=== PATIENT | female | born 1955 | race Caucasian/White ===

== ENCOUNTER 2016-10-18 07:17 | Day surgery (SDC) | payer BC ==
[~2016-10-18] VITALS: Ht 149.9 cm; Wt 66.0 kg
[~2016-10-18 07:17] MED LIST: COZAAR100 MG PO; GLUCOPHAGE1000 MG PO; INDERAL20 MG PO; LUNESTA3 MG PO; MAALOX MAXIMUM355 ML PO; NEURONTIN100 MG PO; OMEPRAZOLE40 M1 PO; ZANTAC75 M1 PO; ZOLOFT100 MG PO
[2016-10-18] MEDS ORDERED: TYLENOL EXTRA500 MG PO (07:59)
[2016-10-18 08:01] VITALS: BP 141/73
[2016-10-18 08:34] LABS: POINT-OF-CARE METER ID UU13113694
[2016-10-18 12:45] VITALS: BP 164/76
[2016-10-18 13:15] VITALS: BP 160/74
== END 2016-10-18 13:55 | disposition home or self-care (01) ==
LOC: SDC 07:17
PROVIDERS: Otolaryngology
DX: J39.2 Other diseases of pharynx (principal); K13.21 Leukoplakia of oral mucosa, including tongue; I10 Essential (primary) hypertension; E11.9 Type 2 diabetes mellitus without complications; K21.9 Gastro-esophageal reflux disease without esophagitis; Z79.84 Long term (current) use of oral hypoglycemic drugs
CPT/HCPCS: 82948; 88304; J1100; J2250; J2405; J2550; J3010